=== PATIENT | male | born 1965 | race Caucasian/White ===

== ENCOUNTER → 2017-01-26 | Outpatient (CLI) | payer OTHER | END | disposition home or self-care (01) | LOC: CFH 16:12 | PROVIDERS: ATTEND Family Medicine | DX: N40.0 Benign prostatic hyperplasia without lower urinary tract symptoms (principal) | CPT/HCPCS: 76770 ==

== ENCOUNTER → 2017-03-31 | Outpatient (CLI) | payer OTHER ==
[~2017-03-31] MED LIST: OMNIPAQUE 350 MG/ML, 100ML BOTTLE ONE
== END | disposition home or self-care (01) ==
LOC: CFH 10:39
PROVIDERS: ATTEND Internal Medicine
DX: K76.0 Fatty (change of) liver, not elsewhere classified (principal); M51.36 Other intervertebral disc degeneration, lumbar region; M51.37 Other intervertebral disc degeneration, lumbosacral region; E83.52 Hypercalcemia; R59.0 Localized enlarged lymph nodes; I51.7 Cardiomegaly; I27.2 Other secondary pulmonary hypertension; I10 Essential (primary) hypertension
CPT/HCPCS: 71260; 74177; 93306; Q9967

== ENCOUNTER → 2017-11-15 | Outpatient (CLI) | payer OTHER ==
[2017-11-15 07:32] LABS: ALBUMIN 4.3 g/dL (3.4-5.0); ANION GAP 5 mmol/L (5-15); CALCIUM 8.8 mg/dL (8.5-10.1); CHLORIDE 105 mmol/L (98-107); CHOLESTEROL, TOTAL 226 mg/dL (140-239)
[2017-11-15 07:33] LABS: BASOPHILS # (AUTO) 0.04 x10^3/uL (0-0.1); BASOPHILS % (AUTO) 1 % (0-1); EOSINOPHILS # (AUTO) 0.12 x10^3/uL (0-0.4); EOSINOPHILS % (AUTO) 3 % (1-7); LYMPHOCYTES # (AUTO) 1.76 x10^3/uL (1-3.4); LYMPHOCYTES % (AUTO) 39 % (22-44); MD NO; MEAN CORPUSCULAR HEMOGLOBIN 29.3 pg (27.5-34.5); MEAN CORPUSCULAR VOLUME 86.2 fL (81-97); MEAN PLATELET VOLUME 8.1 fL (7.4-10.4); MONOCYTES % (AUTO) 11 % (2-9); NEUTROPHILS # (AUTO) 2.14 x10^3/uL (1.8-6.8); NEUTROPHILS % (AUTO) 47 % (42-75); PLATELET COUNT 227 x10^3/uL (130-400); RED CELL DISTRIBUTION WIDTH 13.8 % (9.4-14.8)
[2017-11-15 08:12] LABS: ALANINE AMINOTRANSFERASE 42 U/L (12-78); ALKALINE PHOSPHATASE 44 U/L (45-117); BILIRUBIN,TOTAL 0.3 mg/dL (0.2-1.0); CHOL/HDL RATIO 5.1; CREATININE 1.14 mg/dL (0.7-1.3); HDL CHOL % 19 % (26-37); HDL CHOLESTEROL (DIRECT) 44 mg/dL (40-60); LDL CHOLESTEROL,CALCULATED 141 mg/dL (54-169); LDL/HDL RATIO 3.2 (0.5-3.0); PSA SCREEN 1.53 ng/mL (0.00-4.00); TOTAL PROTEIN 7.9 g/dL (6.4-8.2); TRIGLYCERIDES 203 mg/dL (50-200); VLDL CHOLESTEROL 41 mg/dL (0-25)
[2017-11-15 08:14] LABS: HCT (SEDRATE) 47.4 % (39.2-51.8)
[2017-11-15 08:16] LABS: FOLATE LEVEL > 20.0 ng/mL (3.1-17.5)
[2017-11-15 12:24] LABS: ANA SCREEN NEGATIVE (Negative)
== END | disposition home or self-care (01) ==
LOC: LAB 07:00
PROVIDERS: ATTEND Internal Medicine
DX: Z00.00 Encounter for general adult medical examination without abnormal findings (principal); D51.9 Vitamin B12 deficiency anemia, unspecified; E55.9 Vitamin D deficiency, unspecified; M06.9 Rheumatoid arthritis, unspecified; M13.0 Polyarthritis, unspecified; N40.0 Benign prostatic hyperplasia without lower urinary tract symptoms; E03.9 Hypothyroidism, unspecified; E29.1 Testicular hypofunction
CPT/HCPCS: 36415; 80053; 80061; 82306; 82607; 82746; 83615; 83970; 84403; 84443; 85025; 85651; 86038; 86225; 86235; 86430; G0103

== ENCOUNTER 2018-05-26 05:16 | Emergency (ER) | payer OTHER ==
[~2018-05-26] VITALS: Ht 188 cm; Wt 97.2 kg
[2018-05-26] MEDS ORDERED: ONDANSETRON ODT 4 MG ONE (05:38)
[2018-05-26 05:50] LABS: BASOPHILS # (AUTO) 0.05 x10^3/uL (0-0.1); BASOPHILS % (AUTO) 0 % (0-1); EOSINOPHILS # (AUTO) 0.01 x10^3/uL (0-0.4); EOSINOPHILS % (AUTO) 0 % (1-7); LYMPHOCYTES # (AUTO) 1.85 x10^3/uL (1-3.4); LYMPHOCYTES % (AUTO) 14 % (22-44); MD NO; MEAN CORPUSCULAR HEMOGLOBIN 29.2 pg (27.5-34.5); MEAN CORPUSCULAR HGB CONC 33.8 g/dL (33.2-36.2); MEAN CORPUSCULAR VOLUME 86.3 fL (81-97); MEAN PLATELET VOLUME 8.6 fL (7.4-10.4); MONOCYTES # (AUTO) 0.84 x10^3/uL (0.2-0.8); MONOCYTES % (AUTO) 6 % (2-9); NEUTROPHILS # (AUTO) 10.76 x10^3/uL (1.8-6.8); NEUTROPHILS % (AUTO) 80 % (42-75); PLATELET COUNT 310 x10^3/uL (130-400); RED BLOOD COUNT 6.05 x10^6/uL (4.38-5.82); RED CELL DISTRIBUTION WIDTH 13.9 % (9.4-14.8)
[2018-05-26 05:59] LABS: ALANINE AMINOTRANSFERASE 59 U/L (12-78); ALBUMIN 4.5 g/dL (3.4-5.0); ANION GAP 14 mmol/L (5-15); CALCIUM 10.2 mg/dL (8.5-10.1); CHLORIDE 104 mmol/L (98-107); CREATININE 1.38 mg/dL (0.7-1.3)
[2018-05-26] MEDS ORDERED: ONDANSETRON ODT 4 MG PO ONE (06:00)
[2018-05-26 06:01] LABS: ALKALINE PHOSPHATASE 47 U/L (45-117); BILIRUBIN,TOTAL 0.9 mg/dL (0.2-1.0); TOTAL PROTEIN 8.7 g/dL (6.4-8.2)
[2018-05-26 06:44] VITALS: BP 135/108
[2018-05-26] MEDS ORDERED: METOCLOPRAMIDE 5 MG/ML, 2ML ONE (06:53)
[2018-05-26] MEDS ORDERED: MAALOX/HYOSCYAMINE/LIDOCAINE 45 ML BTL ONE (06:53)
[2018-05-26 06:54] LABS: TROPONIN I < 0.015 ng/mL (0.000-0.045)
[2018-05-26] MEDS ORDERED: MAALOX/HYOSCYAMINE/LIDOCAINE 45 ML BTL PO ONE (07:00)
[2018-05-26] MEDS ORDERED: SODIUM CHLORIDE 0.9% 1,000ML IVBOLUS ONE (07:00)
[2018-05-26] MEDS ORDERED: METOCLOPRAMIDE 5 MG/ML, 2ML IVPush ONE (07:00)
== END 2018-05-26 07:51 | disposition home or self-care (01) ==
LOC: ED 06:12
DX: R05 Cough (principal); R11.2 Nausea with vomiting, unspecified; B34.9 Viral infection, unspecified
CPT/HCPCS: 36415; 71046; 80053; 83690; 84484; 85025; 93005; 96361; 96374; 99285; J2765; J7030; Q0162